=== PATIENT | female | born 1955 | race Caucasian/White ===

== ENCOUNTER → 2023-09-26 16:16 | Outpatient (REF) | payer OTHER, SELFPAY | LOC: HWWDC 16:16 | PROVIDERS: ATTENDING PHYSICIAN Nurse Practitioner | DX: Z12.31 Encounter for screening mammogram for malignant neoplasm of breast (principal) | CPT/HCPCS: 77063; 77067 ==

== ENCOUNTER 2024-10-08 06:13 | Day surgery (SDC) | payer OTHER, SELFPAY ==
[2024-10-08 09:33] LABS: Glucose - Point of Care 134 mg/dl (70-99)
== END 2024-10-08 08:10 | disposition home or self-care (01) ==
LOC: GI 06:13
PROVIDERS: ATTENDING PHYSICIAN Specialist
DX: Z12.11 Encounter for screening for malignant neoplasm of colon (principal); Z86.0101 Personal history of adenomatous and serrated colon polyps; Z85.028 Personal history of other malignant neoplasm of stomach; Z98.0 Intestinal bypass and anastomosis status; Z08 Encounter for follow-up examination after completed treatment for malignant neoplasm
CPT/HCPCS: 43239; G0105; 82962; 88305

== ENCOUNTER → 2025-03-23 10:12 | Outpatient (REF) | payer OTHER, SELFPAY | LOC: HWWDC 10:12 | PROVIDERS: ATTENDING PHYSICIAN Nurse Practitioner | DX: Z12.31 Encounter for screening mammogram for malignant neoplasm of breast (principal); Z13.820 Encounter for screening for osteoporosis | CPT/HCPCS: 77063; 77067 ==